=== PATIENT | male | born 1975 | race Caucasian/White ===

== ENCOUNTER 2016-08-09 21:03 | Emergency (ER) | payer SELFPAY ==
[~2016-08-09] VITALS: Ht 177.8 cm; Wt 77.0 kg
[2016-08-09] MEDS ORDERED: MORPHINE SULFATE 4 MG/ML CPJ (NOT FOR IM USE) IV STA (22:25)
[2016-08-09] MEDS ORDERED: ONDANSETRON HCL 4MG/2ML VIAL IV STA (22:25)
[2016-08-09] MEDS ORDERED: SODIUM CHLORIDE 0.9% 1,000 ML IV ONE (22:25)
[2016-08-09] MEDS ORDERED: FAMOTIDINE 20MG/2ML VIAL IV ONE (22:30)
[2016-08-09 22:47] VITALS: BP 118/83
[2016-08-09 23:23] LABS: CHLORIDE 105 mEq/L (98-107)
[2016-08-09 23:27] LABS: INR 1.1; PROTHROMBIN TIME 11.7 sec
[2016-08-09 23:29] LABS: BASOPHILS % 0.3 % (0.0-2.0); EOSINOPHILS % 8.1 % (0.0-5.0); HEMATOCRIT. 43.6 % (42.0-52.0); HEMOGLOBIN. 15.3 g/dL (14.0-18.0); LYMPHOCYTES % 19.6 % (20.0-50.0); MEAN CORPUSCULAR HEMOGLOBIN 30.1 pg (28.0-32.0); MEAN CORPUSCULAR VOLUME 85.8 fL (80.0-94.0); MEAN PLATELET VOLUME 8.5 fl (7.4-10.4); MONOCYTES % 11.1 % (2.0-8.0); NEUTROPHILS % 60.9 % (40.0-76.0); PLATELET 182 x1000/uL (130-400); RED BLOOD CELL COUNT 5.08 mill/uL (4.7-6.1); RED CELL DISTRIBUTION WIDTH 13.4 % (11.6-14.6)
[2016-08-09 23:32] LABS: CARBON DIOXIDE 28 mEq/L (21-32)
== END 2016-08-10 01:15 | disposition home or self-care (01) ==
LOC: ER 21:42
DX: R51 Headache (principal); H53.8 Other visual disturbances; R50.9 Fever, unspecified; R11.0 Nausea; M54.5 Low back pain; R10.9 Unspecified abdominal pain; H91.92 Unspecified hearing loss, left ear; F17.200 Nicotine dependence, unspecified, uncomplicated
CPT/HCPCS: 36415; 70450; 80053; 83605; 83690; 85025; 85610; 96361; 96374; 96375; 99285; J2270; J2405; J3490; Z7610; J7030